=== PATIENT | male | born 1980 | race Caucasian/White ===

== ENCOUNTER 2016-09-24 20:03 | Emergency (ER) | payer SELFPAY ==
[~2016-09-24] VITALS: Ht 185.4 cm; Wt 75.0 kg
[~2016-09-24 20:03] MED LIST: POLY10O RIGHT EYE; TRAM100T19 PO
[2016-09-24 20:05] VITALS: BP 151/85; PULSE 95; RESP 16; TEMP 98; O2SAT 99
[2016-09-24] MEDS ORDERED: ALBU6.7H INH (22:08)
[2016-09-24] MEDS ORDERED: ZITH250T PO (22:08)
--- NOTE | 2016-09-24 22:12 | PD ---
HPI Chief Complaint: Cold / Flu Symptoms Time Seen by Provider: 22:09 Travel History International Travel<30 days: No Contact w/Intl Traveler<30days: No Traveled to known affect area: No History of Present Illness HPI 35-year-old white male presents to emergency department with a 1-2 week history of cough and congestion. He states that this is similar to when he has had pneumonia in the past. He states that he has had runny nose, sore throat as well. Some colored sputum. Mild shortness of breath. No wheezing. No nausea vomiting. No abdominal pain or diarrhea. No dysuria or frequency. [facility] Past Medical History Narrative Medical pNEUMONIA Coronary Artery Disease: No Diminished Hearing: No Migraines: Yes Tetanus Vaccination: < 5 Years Past Surgical History Arteriovenous Shunt: No Oral Surgery: Yes (WIRED JAW. BROKEN MANDIBLE. ) Other Surgery: Yes (NASAL POLYPS REMOVED. ) Social History Alcohol Use: Yes ("OCCASIONALLY") Tobacco Use: No Substance Use: No Allergies-Medications (Allergen,Severity, Reaction): Coded Allergies: Nubain (Verified Adverse Reaction, Severe, SEVERE PANIC ATTACK, 09/24/16) Reported Meds & Prescriptions Reported Meds & Active Scripts Active Proventil Hfa 6.7 GM Inh (Albuterol Sulfate) 90 Mcg/Act Aer 2 Puff INH Q4-6H PRN Zithromax (Azithromycin) 250 Mg Tab 250 Mg PO DIRECTED Take 2 tabs (500 mg) on day 1 then 1 tab daily x 4 days. Review of Systems Except as stated in HPI: all other systems reviewed are Neg Physical Exam Narrative GENERAL: Well-developed, well-nourished in no acute distress. Nontoxic appearing. HEAD: Normocephalic, atraumatic. EYES: Pupils equal round and reactive. Extraocular motions intact. No scleral icterus. No injection or drainage. ENT: TMs clear without erythema. The external auditory canals clear. Nose: clear . Posterior pharynx is pink and moist. No tonsillar edema or exudate. Uvula midline. Airway patent. NECK: Trachea midline.Supple, nontender, moves head freely. No central bony tenderness or spasm. CARDIOVASCULAR: Regular rate and rhythm without murmurs, gallops, or rubs. RESPIRATORY: Clear to auscultation. Breath sounds equal bilaterally. No wheezes , rales, or rhonchi. GASTROINTESTINAL: Abdomen soft, non-tender, nondistended. No hepato-splenomegaly , or palpable masses. No guarding. EXTREMITIES: No clubbing, cyanosis, or edema. No joint tenderness, effusion, or edema noted. BACK: Nontender without deformity or crepitance. No flank tenderness. Data Data Last Documented VS Vital Signs Date Time Temp Pulse Resp B/P Pulse Ox O2 Delivery O2 Flow Rate FiO2 09/24/16 20:05 98.0 95 16 151/85 99 MDM Medical Decision Making Medical Screen Exam Complete: Yes Emergency Medical Condition: Yes Medical Record Reviewed: Yes Differential Diagnosis MDM: High Differential diagnoses: Pneumonia, bronchitis, URI, asthma, RAD, legionnaire's disease, SARS, ARDS, influenza, bronchiolitis, RSV,PE,CHF Narrative Course This is bronchitis Patient given Zithromax 500 by mouth Diagnosis Primary Impression: Bronchitis Patient Instructions: General Instructions Additional Instructions: Rest. Increase fluids. Tylenol and Advil. Robitussin-DM. Zithromax and albuterol. Followup with your Dr. in one week. Return to the ER for any problems. Med/Other Pt SpecificInfo: Prescription(s) given Scripts Albuterol 6.7 GM Inh (Proventil Hfa 6.7 GM Inh)90 Mcg/Act Aer2 Puff INH Q4-6H PRN (SHORTNESS OF BREATH) #1 INHALER Prov:Corrina Tidwell MD 09/24/16 Azithromycin (Zithromax)250 Mg [id number] Mg PO DIRECTED #6 TAB Take 2 tabs (500 mg) on day 1 then 1 tab daily x 4 days. Prov:Corrina Tidwell MD 09/24/16 Disposition: 01 DISCHARGE HOME Condition: Stable Serafin Blevins Sep 24, 2016 22:11
[2016-09-24] MEDS ORDERED: AZITHROMYCIN 250 MG TAB PO ONE (22:15)
== END 2016-09-24 22:21 | disposition home or self-care (01) ==
LOC: NEPB 20:03
DX: J40 Bronchitis, not specified as acute or chronic (principal)
CPT/HCPCS: 99283

== ENCOUNTER 2017-04-27 19:16 | Emergency (ER) | payer SELFPAY ==
[~2017-04-27] VITALS: Ht 185.4 cm; Wt 78.0 kg
[~2017-04-27 19:16] MED LIST changes: +ALBU6.7H INH; -POLY10O RIGHT EYE; -TRAM100T19 PO; +ZITH250T PO
[2017-04-27 19:20] VITALS: BP 155/77; PULSE 80; RESP 16; TEMP 98; O2SAT 98
[2017-04-27] MEDS ORDERED: TETANUS/DIPHTHERIA TOXOID ADULT 0.5 ML VIAL IM ONE (19:45)
[2017-04-27] MEDS ORDERED: LEVOFLOXACIN 500 MG TAB PO ONE (19:45)
[2017-04-27] MEDS ORDERED: DOXYCYCLINE HYCLATE 100 MG CAP PO ONE (19:45)
[2017-04-27] MEDS ORDERED: ACETAMINOPHEN/HYDROcodone 325 MG/5 MG TAB PO ONE (19:45)
[2017-04-27] MEDS ORDERED: DOXY100C PO (19:47)
[2017-04-27] MEDS ORDERED: IBUP800T23 PO (19:47)
[2017-04-27] MEDS ORDERED: LEVA750T9 PO (19:47)
--- NOTE | 2017-04-27 19:54 | PD ---
HPI Chief Complaint: Laceration/Skin Injury Time Seen by Provider: 19:26 Travel History International Travel<30 days: No Contact w/Intl Traveler<30days: No Traveled to known affect area: No History of Present Illness HPI 36-year-old right-hand dominant male presents to the ED for evaluation of 10/10 pain in the left wrist. Onset after he was jabbed by a catfish jessee just before arrival. The patient states that he caught a catfish, bashed it against a rock and hit swung back and hit him in the wrist. No alleviating or exacerbating factors reported. Described as burning, searing, throbbing pain. He denies numbness, tingling, weakness, limitations to range of motion of the extremity. No treatment attempted before arrival. He endorses having a few drinks today. He is unsure of the date of his last tetanus immunization. PFSH Past Medical History Coronary Artery Disease: No Diminished Hearing: No Migraines: Yes Past Surgical History Arteriovenous Shunt: No Oral Surgery: Yes (WIRED JAW. BROKEN MANDIBLE. ) Other Surgery: Yes (NASAL POLYPS REMOVED. ) Social History Alcohol Use: Yes (1-2 drinks per day) Tobacco Use: No Substance Use: No Allergies-Medications (Allergen,Severity, Reaction): Coded Allergies: nalbuphine (Unverified Adverse Reaction, Severe, SEVERE PANIC ATTACK, ) Reported Meds & Prescriptions Reported Meds & Active Scripts Active Ibuprofen 800 Mg Tab 800 Mg PO Q8H PRN Levaquin (Levofloxacin) 750 Mg Tablet 750 Mg PO DAILY 10 Days Doxycycline Hyclate 100 Mg Cap 100 Mg PO BID 10 Days Review of Systems Except as stated in HPI: all other systems reviewed are Neg Physical Exam Narrative GENERAL: Well-nourished, well-developed male in no acute distress. SKIN: Focused skin assessment warm/dry. HEAD: Normocephalic. EYES: No scleral icterus. No injection or drainage. NECK: Supple, trachea midline. No JVD or lymphadenopathy. CARDIOVASCULAR: Regular rate and rhythm without murmurs, gallops, or rubs. RESPIRATORY: Breath sounds equal bilaterally. No accessory muscle use. GASTROINTESTINAL: Abdomen soft, non-tender, nondistended. MUSCULOSKELETAL: No cyanosis, or edema. FOCUSED LEFT UPPER EXTREMITY EXAM: 2+ DP pulse. There is a single puncture wound between the distal ulna and radius with no active bleeding. No edema. No erythema. No visible foreign body. Patient retains full, active, painless range of motion of the digit and wrist. He is able to oppose the fingers and thumb strongly. Sensation intact to light touch distally. Cap refill less than 2 seconds. BACK: Nontender without obvious deformity. No CVA tenderness. Data Data Last Documented VS Vital Signs Date Time Temp Pulse Resp B/P (MAP) Pulse Ox O2 Delivery O2 Flow Rate FiO2 04/27/17 19:33 24 04/27/17 19:20 98.0 80 155/77 (103) 98 Room Air Orders Orders Wrist, Limited (Ap&Lat) (04/27/17 19:33) Ice / Cold Pack PRN (04/27/17 19:33) Doxycycline (Vibramycin) (04/27/17 19:45) Ed Poc Ultrasound (04/27/17 ) Acetamin-Hydrocod 325-5 Mg ([place] 5-325 (04/27/17 19:45) Tetanus/Diphtheria Tox Adult (Tetanus/Di (04/27/17 19:45) Levofloxacin (Levaquin) (04/27/17 20:00) Ed Discharge Order (04/27/17 20:26) MDM Medical Decision Making Medical Screen Exam Complete: Yes Emergency Medical Condition: Yes Differential Diagnosis Puncture wound versus foreign body versus need for tetanus immunization versus neurovascular injury versus other Narrative Course 36-year-old right-hand dominant male presents the ED for evaluation of 10 out of 10 left wrist pain. Onset after he was jabbed with a catfish jessee. He states that he removed the jessee. Vitals reviewed. Physical exam reveals a single puncture jason on the anterior aspect of the distal wrist without active bleeding or visible foreign body. Patient maintains full, active, painless range of motion of the digits of the hand, including anger to thumb opposition. Cap refill less than 2 seconds on each digit. Patient's tetanus immunization was updated. The hand was soaked in a tub of hot water. Patient was administered 5 mg Lortab, 750 Levaquin, 100 mg doxycycline. X-ray reported care ultrasound revealed no retained foreign body. This is a marine animal sting. I patient's prescribed 750 Levaquin daily, 100 mg doxycycline twice a day 10 days and short course of anti-inflammatories. He is instructed to continue with hot water soaks as needed. We discussed signs of infection and reasons to return to the ED. The patient indicated understanding of instructions and is agreeable to the care plan. He is stable and discharged home. Diagnosis Primary Impression: Marine animal sting Qualified Codes: T63.691A - Toxic effect of contact with other venomous marine animals, accidental (unintentional), initial encounter Referrals: Primary Care Physician Patient Instructions: General Instructions, Marine Animal Bite or Sting (ED) Additional Instructions: Rest, hydrate. Return to normal, gentle activity as tolerated. Take all of the antibiotics as they're prescribed, even if no symptoms appear. In other words take all of the medicine until it is gone. Take ibuprofen up to 3 times a day as needed for pain. Hot water soaks may also help to improve your symptoms. Monitor for signs of infection as discussed. Return to the ED should they occur. Otherwise follow-up with the primary care provider. Return to the ED for any urgent or emergent medical condition. Med/Other Pt SpecificInfo: Prescription(s) given Scripts Ibuprofen (Ibuprofen) 800 Mg Tab 800 MG PO Q8H Y for Pain/Inflammation, #15 TAB 0 Refills Prov: Mickey Enrique MD 04/27/17 Levofloxacin (Levaquin) 750 Mg Tablet 750 MG PO DAILY for Infection for 10 Days, #10 TAB 0 Refills Prov: Mickey Enrique MD 04/27/17 Doxycycline Hyclate (Doxycycline Hyclate) 100 Mg Cap 100 MG PO BID for Infection for 10 Days, #20 CAP 0 Refills Prov: Mickey Enrique MD 04/27/17 Disposition: 01 DISCHARGE HOME Condition: Stable Antonia White Apr 27, 2017 19:54
[2017-04-27] MEDS ORDERED: LEVOFLOXACIN 750 MG TAB PO ONE (20:00)
--- NOTE | 2017-04-27 20:07 | RADRPT ---
EXAM DATE/TIME: 04/27/2017 19:41 [place] COMPARISON: No previous studies available for comparison. INDICATIONS : Foreign body. MEDICAL HISTORY : None. SURGICAL HISTORY : None. ENCOUNTER: Initial ACUITY: 1 day PAIN SCORE: 10/10 LOCATION: Left upper extremity wrist, anterior. FINDINGS: Two view examination of the left wrist demonstrates no soft tissue swelling, dislocation, or fracture . The joint spaces are maintained. Bony mineralization is normal. CONCLUSION: 1. No acute findings. No radiopaque foreign body. Serafin Mota MD on April 27, 2017 at 20:04 Board Certified Radiologist. This report was verified electronically.
--- NOTE | 2017-04-27 20:26 | PD ---
Data Data Last Documented VS Vital Signs Date Time Temp Pulse Resp B/P (MAP) Pulse Ox O2 Delivery O2 Flow Rate FiO2 04/27/17 19:33 24 04/27/17 19:20 98.0 80 155/77 (103) 98 Room Air Orders Orders Wrist, Limited (Ap&Lat) (04/27/17 19:33) Ice / Cold Pack PRN (04/27/17 19:33) Doxycycline (Vibramycin) (04/27/17 19:45) Ed Poc Ultrasound (04/27/17 ) Acetamin-Hydrocod 325-5 Mg ([place] 5-325 (04/27/17 19:45) Tetanus/Diphtheria Tox Adult (Tetanus/Di (04/27/17 19:45) Levofloxacin (Levaquin) (04/27/17 20:00) MDM Supervised Visit with KALIN: Yes Narrative Course The history, exam, and medical decision-making in the associated mid-level provider note were completed with my assistance. I reviewed and agree with the findings presented. I attest that I had a [id number] encounter with the patient on the same day, and personally performed and documented my assessment and findings in the medical record. *My assessment and Findings: 36-year-old man, puncture wound from catfish. Looks well. I examined with an ultrasound did not see any retained foreign body. Prophylactic antibiotics. Procedures Procedure Narrative Splenic or ultrasound: Focus soft tissue ultrasounds perform a me at the bedside to evaluate for evidence of foreign body. No evidence of foreign body was identified. Diagnosis Primary Impression: Marine animal sting Qualified Codes: T63.691A - Toxic effect of contact with other venomous marine animals, accidental (unintentional), initial encounter Scripts Ibuprofen (Ibuprofen) 800 Mg Tab 800 MG PO Q8H Y for Pain/Inflammation, #15 TAB 0 Refills Prov: Mickey Enrique MD 04/27/17 Levofloxacin (Levaquin) 750 Mg Tablet 750 MG PO DAILY for Infection for 10 Days, #10 TAB 0 Refills Prov: Mickey Enrique MD 04/27/17 Doxycycline Hyclate (Doxycycline Hyclate) 100 Mg Cap 100 MG PO BID for Infection for 10 Days, #20 CAP 0 Refills Prov: iMckey Enrique MD 04/27/17 Disposition: 01 DISCHARGE HOME Condition: Stable Mickey Enrique MD Apr 27, 2017 20:26
--- NOTE | 2017-04-27 20:26 | PD ---
Data Data Last Documented VS Vital Signs Date Time Temp Pulse Resp B/P (MAP) Pulse Ox O2 Delivery O2 Flow Rate FiO2 04/27/17 19:33 24 04/27/17 19:20 98.0 80 155/77 (103) 98 Room Air Orders Orders Wrist, Limited (Ap&Lat) (04/27/17 19:33) Ice / Cold Pack PRN (04/27/17 19:33) Doxycycline (Vibramycin) (04/27/17 19:45) Ed Poc Ultrasound (04/27/17 ) Acetamin-Hydrocod 325-5 Mg ([place] 5-325 (04/27/17 19:45) Tetanus/Diphtheria Tox Adult (Tetanus/Di (04/27/17 19:45) Levofloxacin (Levaquin) (04/27/17 20:00) MDM Supervised Visit with KALIN: Yes Narrative Course The history, exam, and medical decision-making in the associated mid-level provider note were completed with my assistance. I reviewed and agree with the findings presented. I attest that I had a [id number] encounter with the patient on the same day, and personally performed and documented my assessment and findings in the medical record. *My assessment and Findings: 36-year-old man, puncture wound from catfish. Looks well. I examined with an ultrasound did not see any retained foreign body. Prophylactic antibiotics. Procedures Procedure Narrative Splenic or ultrasound: Focus soft tissue ultrasounds perform a me at the bedside to evaluate for evidence of foreign body. No evidence of foreign body was identified. Diagnosis Primary Impression: Marine animal sting Qualified Codes: T63.691A - Toxic effect of contact with other venomous marine animals, accidental (unintentional), initial encounter Scripts Ibuprofen (Ibuprofen) 800 Mg Tab 800 MG PO Q8H Y for Pain/Inflammation, #15 TAB 0 Refills Prov: Mickey Enrique MD 04/27/17 Levofloxacin (Levaquin) 750 Mg Tablet 750 MG PO DAILY for Infection for 10 Days, #10 TAB 0 Refills Prov: Mickey Enrique MD 04/27/17 Doxycycline Hyclate (Doxycycline Hyclate) 100 Mg Cap 100 MG PO BID for Infection for 10 Days, #20 CAP 0 Refills Prov: Mickey Enrique MD 04/27/17 Disposition: 01 DISCHARGE HOME Condition: Stable Mickey Enrique MD Apr 27, 2017 20:26
--- NOTE | 2017-04-27 20:26 | PD ---
Data Data Last Documented VS Vital Signs Date Time Temp Pulse Resp B/P (MAP) Pulse Ox O2 Delivery O2 Flow Rate FiO2 04/27/17 19:33 24 04/27/17 19:20 98.0 80 155/77 (103) 98 Room Air Orders Orders Wrist, Limited (Ap&Lat) (04/27/17 19:33) Ice / Cold Pack PRN (04/27/17 19:33) Doxycycline (Vibramycin) (04/27/17 19:45) Ed Poc Ultrasound (04/27/17 ) Acetamin-Hydrocod 325-5 Mg ([place] 5-325 (04/27/17 19:45) Tetanus/Diphtheria Tox Adult (Tetanus/Di (04/27/17 19:45) Levofloxacin (Levaquin) (04/27/17 20:00) MDM Supervised Visit with KALIN: Yes Narrative Course The history, exam, and medical decision-making in the associated mid-level provider note were completed with my assistance. I reviewed and agree with the findings presented. I attest that I had a [id number] encounter with the patient on the same day, and personally performed and documented my assessment and findings in the medical record. *My assessment and Findings: 36-year-old man, puncture wound from catfish. Looks well. I examined with an ultrasound did not see any retained foreign body. Prophylactic antibiotics. Procedures Procedure Narrative Splenic or ultrasound: Focus soft tissue ultrasounds perform a me at the bedside to evaluate for evidence of foreign body. No evidence of foreign body was identified. Diagnosis Primary Impression: Marine animal sting Qualified Codes: T63.691A - Toxic effect of contact with other venomous marine animals, accidental (unintentional), initial encounter Scripts Ibuprofen (Ibuprofen) 800 Mg Tab 800 MG PO Q8H Y for Pain/Inflammation, #15 TAB 0 Refills Prov: Mickey Enrique MD 04/27/17 Levofloxacin (Levaquin) 750 Mg Tablet 750 MG PO DAILY for Infection for 10 Days, #10 TAB 0 Refills Prov: Mickey Enrique MD 04/27/17 Doxycycline Hyclate (Doxycycline Hyclate) 100 Mg Cap 100 MG PO BID for Infection for 10 Days, #20 CAP 0 Refills Prov: Mickey Enrique MD 04/27/17 Disposition: 01 DISCHARGE HOME Condition: Stable Mickey Enrique MD Apr 27, 2017 20:26
[2017-04-27 21:03] VITALS: RESP 20
== END 2017-04-27 21:05 | disposition home or self-care (01) ==
LOC: NEPD 19:16
DX: T63.691A Toxic effect of contact with other venomous marine animals, accidental (unintentional), initial encounter (principal); Z23 Encounter for immunization
CPT/HCPCS: 73100; 90471; 90714